=== PATIENT | male | born 1955 | race Caucasian/White ===

== ENCOUNTER 2019-12-05 15:42 | Inpatient (IN) | payer OTHER ==
[2019-12-05] MEDS ORDERED: SODIUM CHLORIDE 0.9% 1,000 ML IV ONE (16:09)
[2019-12-05] MEDS ORDERED: VANCOMYCIN IV PER PHARMACY 1 EACH MISC MISCELLANE PRN (16:10)
[2019-12-05] MEDS ORDERED: VANCOMYCIN 2,000 MG in SODIUM CHLORIDE 0.9% 500 ML 500 ML IVPB ONE (16:30)
--- NOTE | 2019-12-05 16:35 | XR ---
EXAMINATION TYPE: XR finger RT DATE OF EXAM: 12/05/2019 COMPARISON: NONE HISTORY: Right ring finger crush injury/infection TECHNIQUE: AP, lateral, and oblique coned-down images of the fourth digit were obtained FINDINGS: There is an extra-articular, minimally displaced, comminuted fracture of the tuft of the fo urth digit. No angulation. Associated fourth digit distal soft tissue irregularity. There is also a t iny acute avulsion fracture fragment of the dorsal aspect of the fourth digit distal phalangeal base seen on lateral view. Normal osseous mineralization. IMPRESSION: 1. Comminuted fracture of the fourth digit tuft. 2. Acute avulsion fracture fragment of the dorsal fourth digit distal phalangeal base.
[2019-12-05 16:50] LABS: Basophils # (A) 0.1 k/uL (0-0.2); Basophils % (A) 1 %; Eosinophils # (A) 0.3 k/uL (0-0.7); Eosinophils % (A) 3 %; HCT 45.4 % (39.0-53.0); HGB 14.5 gm/dL (13.0-17.5); Lymphocytes # (A) 2.1 k/uL (1.0-4.8); Lymphocytes % (A) 23 %; MCH 31.6 pg (25.0-35.0); MCV 98.6 fL (80.0-100.0); Mean Platelet Volume 6.7; Monocytes # (A) 0.6 k/uL (0-1.0); Monocytes % (A) 7 %; Neutrophils # (A) 5.9 k/uL (1.3-7.7); Neutrophils % (A) 64 %; Platelet Count 266 k/uL (150-450); RDW 11.9 % (11.5-15.5); WBC 9.2 k/uL (3.8-10.6)
[2019-12-05 17:01] LABS: Albumin 4.5 g/dL (3.5-5.0); Calcium 9.8 mg/dL (8.4-10.2); Total Bilirubin 0.5 mg/dL (0.2-1.3); Total Protein 7.7 g/dL (6.3-8.2)
--- NOTE | 2019-12-05 17:19 | ED ---
General Adult HPI - General Source: patient Mode of arrival: ambulatory Limitations: no limitations <Christi Cline - Last Filed: 12/05/19 19:09> <Malathi Burnham - Last Filed: 12/07/19 15:36> - General Chief complaint: Skin/Abscess/Foreign Body Stated complaint: FINGER INJURY Time Seen by Provider: 12/05/19 15:55 - History of Present Illness Initial comments: 64-year-old male patient presents to the emergency department today for evaluation of injury to the right fourth digit. Patient states that he crushed his finger while working outside on Sunday. Patient states that over the last couple of days the finger has become more swollen and painful. He reports black discoloration to the tip of the finger. Patient went to urgent care today for evaluation was sent here for admission. Patient denies any fever or chills. Denies significant discomfort to the hand or finger. He does admit to having type 2 diabetes. Patient denies any recent rash, cough, shortness of breath, chest pain, abdominal pain, nausea, vomiting, diarrhea, constipation, back pain, numbness, tingling, dizziness, weakness, hematuria, dysuria, urinary urgency, urinary frequency, headache, visual changes, or any other complaints. (Christi Cline) - Related Data Home Medications Medication Instructions Recorded Confirmed Beet 605mg 1 tab PO DAILY 12/05/19 12/05/19 Berberine-Herbal Comb No.18 1 tab PO DAILY 12/05/19 12/05/19 Cinnamon Bark [Cinnamon] 500 mg PO DAILY 12/05/19 12/05/19 Ketorolac 0.5% Ophth Soln [Acular] 1 drops RIGHT EYE QID 12/05/19 12/05/19 Linagliptin [Tradjenta] 5 mg PO DAILY 12/05/19 12/05/19 Lisinopril [Zestril] 10 mg PO DAILY 12/05/19 12/05/19 Loratadine-Pseudoeph 10-240 mg 1 tab PO DAILY 12/05/19 12/05/19 [Claritin-D 24 Hour] [place]-3(Unknown Dose) 1 cap PO DAILY 12/05/19 12/05/19 Vit C/E/Zn/Coppr/Lutein/Zeaxan 1 cap PO DAILY 12/05/19 12/05/19 [Preservision Areds 2 Softgel] metFORMIN HCL [Glucophage] 1,000 mg PO BID 12/05/19 12/05/19 Allergies Allergy/AdvReac Type Severity Reaction Status Date / Time [id number]-[id number]-Twf Reductase AdvReac MUSCLE Verified 12/05/19 17:10 Inhibitor ACHES Review of Systems ROS Other: All systems not noted in ROS Statement are negative. <Christi Cline - Last Filed: 12/05/19 19:09> ROS Other: All systems not noted in ROS Statement are negative. <Malathi Burnham - Last Filed: 12/07/19 15:36> ROS Statement: Those systems with pertinent positive or pertinent negative responses have been documented in the HPI. Past Medical History Past Medical History: Diabetes Mellitus, Hypertension History of Any Multi-Drug Resistant Organisms: None Reported Additional Past Surgical History / Comment(s): eye surgery Past Psychological History: No Psychological Hx Reported Smoking Status: Never smoker Past Alcohol Use History: Daily Past Drug Use History: None Reported <Christi Cline - Last Filed: 12/05/19 19:09> General Exam Limitations: no limitations General appearance: alert, in no apparent distress, other (Physical well-dev eloped, well-nourished adult male patient in no acute distress. Vital signs upon presentation are temperature 98.6F, pulse 90, respirations 20, blood pressure 151/100, pulse ox 100% on room air.) Respiratory exam: Present: normal lung sounds bilaterally. Absent: respiratory distress, wheezes, rales, rhonchi, stridor Cardiovascular Exam: Present: regular rate, normal rhythm, normal heart sounds. Absent: systolic murmur, diastolic murmur, rubs, gallop, clicks GI/Abdominal exam: Present: soft, normal bowel sounds. Absent: distended, tenderness, guarding, rebound, rigid Extremities exam: Present: full ROM, normal capillary refill, other (There is black discoloration to the distal end of the right fourth digit extending from the DIP joint to the tip of the finger. There is soft tissue swelling surrounding the right hand, right wrist with overlying erythema. Skin is otherwise warm and dry. Radial pulse is 2+.). Absent: normal inspection, tenderness, pedal edema, joint swelling, calf tenderness Neurological exam: Present: alert, oriented X3, CN II-XII intact Psychiatric exam: Present: normal affect, normal mood Skin exam: Present: warm, dry, intact, normal color. Absent: rash <Christi Cline - Last Filed: 12/05/19 19:09> Course Vital Signs 12/05/19 12/05/19 12/05/19 15:49 17:26 18:54 Temperature 98.6 F 98.7 F Pulse Rate 90 81 79 Respiratory 20 16 16 Rate Blood Pressure 151/100 150/86 144/87 O2 Sat by Pulse 100 96 97 Oximetry Medical Decision Making - Lab Data Result diagrams: 12/05/19 16:39 12/05/19 16:39 - Radiology Data Radiology results: report reviewed, image reviewed <Christi Cline - Last Filed: 12/05/19 19:09> - Lab Data Result diagrams: 12/05/19 16:39 12/05/19 16:39 <Malathi Burnham - Last Filed: 12/07/19 15:36> - Medical Decision Making 64-year-old male patient with past medical history significant for uncontrolled type 2 diabetes presents to the emergency department today for evaluation of wound and injury to the distal right fourth digit. Physical examination did reveal blackish discoloration to the pad of the right fourth finger, there is subungual hematoma. There is fusiform swelling over the finger as well as swelling over the dorsal aspect of the right hand and wrist. X-ray obtained and did show evidence for comminuted distal tuft fracture of the right fourth finger as well as fracture at the DIP joint. Patient will be admitted to the hospital and started on IV antibiotics for cellulitis. Case was discussed with on-call manufacturing specialist Hussein Echevarria PA-c who does agree to consult on the case. Patient is agreeable with admission. (Christi Cline) I was available for consultation in the emergency department. The history and physical exam were done by the midlevel provider. I was consulted for this patients care. I reviewed the case with the midlevel provider and based on t heir presentation of the patient, I agree with the assessment, medical decision making and plan of care as documented. Chart was dictated using [employer] dictation software. Attempts were made to keyon ect any dictation errors however some typographical errors may persist. (Malathi Burnham) - Lab Data Lab Results 12/05/19 12/05/19 12/05/19 Range/Units 16:39 16:39 16:39 WBC 9.2 (3.8-10.6) k/uL RBC 4.60 (4.30-5.90) m/uL Hgb 14.5 (13.0-17.5) gm/dL Hct 45.4 (39.0-53.0) % MCV 98.6 (80.0-100.0) fL MCH 31.6 (25.0-35.0) pg MCHC 32.0 (31.0-37.0) g/dL RDW 11.9 (11.5-15.5) % Plt Count 266 (150-450) k/uL Neutrophils % 64 % Lymphocytes % 23 % Monocytes % 7 % Eosinophils % 3 % Basophils % 1 % Neutrophils # 5.9 (1.3-7.7) k/uL Lymphocytes # 2.1 (1.0-4.8) k/uL Monocytes # 0.6 (0-1.0) k/uL Eosinophils # 0.3 (0-0.7) k/uL Basophils # 0.1 (0-0.2) k/uL Sodium 137 (137-145) mmol/L Potassium 5.0 (3.5-5.1) mmol/L Chloride 98 (98-107) mmol/L Carbon Dioxide 27 (22-30) mmol/L Anion Gap 12 mmol/L BUN 22 H (9-20) mg/dL Creatinine 1.08 (0.66-1.25) mg/dL Est GFR (CKD-EPI)AfAm 84 (>60 ml/min/1.73 sqM) Est GFR (CKD-EPI)NonAf 73 (>60 ml/min/1.73 sqM) Glucose 143 H (74-99) mg/dL Plasma Lactic Acid Herminio 1.9 (0.7-2.0) mmol/L Calcium 9.8 (8.4-10.2) mg/dL Total Bilirubin 0.5 (0.2-1.3) mg/dL AST 21 (17-59) U/L ALT 18 (4-49) U/L Alkaline Phosphatase 55 (38-126) U/L Total Protein 7.7 (6.3-8.2) g/dL Albumin 4.5 (3.5-5.0) g/dL - Radiology Data Right ring finger x-ray was obtained. Report was reviewed in its entirety. Impression by Dr. Irizarry shows comminuted fracture of the fourth digit tuft. Acute avulsion fracture fragment of the dorsal fourth digit distal phalangeal base. (Christi Cline) Disposition Decision to Admit Reason: Admit from EC Decision Date: 12/05/19 Decision Time: 18:13 <Christi Cline - Last Filed: 12/05/19 19:09> <Malathi Burnham - Last Filed: 12/07/19 15:36> Clinical Impression: Fracture of distal phalanx of right ring finger, Cellulitis, Finger wound, simp le, open Disposition: ADMITTED IP TO THIS HOSP Condition: Serious
[2019-12-05 17:29] VITALS: RESP 16
[2019-12-05] MEDS ORDERED: AMPICILLIN-SULBACTAM 3 GM in SODIUM CHLORIDE 0.9% 100 ML IVPB STA (17:31)
[2019-12-05] MEDS ORDERED: NALOXONE 0.4 MG/ML 1 ML VIAL IV PRN (17:34)
[2019-12-05 20:52] VITALS: BP 160/95; PULSE 78; TEMP 98.1
[2019-12-06] MEDS ORDERED: AMPICILLIN-SULBACTAM 3 GM in SODIUM CHLORIDE 0.9% 100 ML IVPB SCH ×2
[2019-12-06] MEDS ORDERED: VANCOMYCIN 1,750 MG in SODIUM CHLORIDE 0.9% 500 ML 500 ML IVPB SCH (08:00)
--- NOTE | 2019-12-06 08:47 | P.PN ---
Progress Note - Text Progress Note Date: 12/06/19 Received Notice of consult. Evaluated xrays. R ring finger distal tuft fracture comminuted. Pt was d/c last night before evaluation this AM.
== END 2019-12-06 01:55 | disposition left against medical advice (07) | DRG 603 ==
LOC: EC 15:42 → 6NMEDSUR 18:13
PROVIDERS: ADMIT Hospitalist; ATTEND Hospitalist
DX: L03.011 Cellulitis of right finger (principal); S62.634A Displaced fracture of distal phalanx of right ring finger, initial encounter for closed fracture; I10 Essential (primary) hypertension; E11.9 Type 2 diabetes mellitus without complications; Z79.899 Other long term (current) drug therapy; Z79.84 Long term (current) use of oral hypoglycemic drugs; Z88.8 Allergy status to other drugs, medicaments and biological substances
CPT/HCPCS: 36415; 80053; 83605; 85025; 87040; 96361; 96365; 96366; 99284